=== PATIENT | female | born 1990 | race Two or more races ===

== ENCOUNTER 2020-03-04 11:22 | Emergency (ER) | payer OTHER ==
[~2020-03-04] VITALS: Ht 157.5 cm; Wt 81.6 kg
[2020-03-04 13:37] VITALS: BP 121/63
== END 2020-03-04 13:39 | disposition home or self-care (01) ==
LOC: ER 11:22
DX: U07.1 COVID-19 (principal); J06.9 Acute upper respiratory infection, unspecified
CPT/HCPCS: 36415; 71045; 87426

== ENCOUNTER 2021-08-08 19:33 | Emergency (ER) | payer MEDICAID, OTHER ==
[~2021-08-08] VITALS: Ht 154.9 cm; Wt 77.1 kg
[2021-08-08 21:08] LABS: Basophils # (auto) 0 10 ^3/uL (0-0.2); Basophils % (auto) 0.3 % (0.0-2.0); Eosinophils # (auto) 0.3 10 ^3/uL (0-0.8); Eosinophils % (auto) 3.4 % (0.0-7.0); Hemoglobin 13.2 g/dL (12.2-16.2); Lymphocytes # (auto) 2.4 10 ^3/uL (0.4-5.4); Lymphocytes % (auto) 32.3 % (10.0-50.0); Mean Corpuscular Hemoglobin 31.5 pg (28.0-32.0); Mean Corpuscular Hgb Conc. 34.9 g/dL (32.0-36.0); Mean Corpuscular Volume 90.3 fL (80.0-100.0); Monocytes # (auto) 0.5 10 ^3/uL (0-1.3); Neutrophils # (auto) 4.4 10 ^3/uL (1.6-8.6); Nucleated Red Blood Cells % 0.1 %; Red Blood Cells 4.21 10^6/uL (4.0-5.20); Red Cell Distribution Width 12.9 % (11.8-14.3); White Blood Cell 7.6 10^3/uL (4.4-10.8)
[2021-08-08 21:25] LABS: BUN/Creatinine Ratio 16.7; Calcium 9.1 mg/dL (8.5-10.1); Potassium 3.8 mmol/L (3.5-5.1)
[2021-08-09 01:50] LABS: Urine Bacteria MOD /hpf (None Seen); Urine Blood Negative /uL (Negative); Urine Mucus FEW (None Seen); Urine WBC 5 /hpf (0 - 5)
[2021-08-09] MEDS ORDERED: CEPHALEXIN 250 MG CAP PO ONE (02:45)
[2021-08-09] MEDS ORDERED: CEPH-322 PO (02:47)
[2021-08-09 03:26] VITALS: BP 99/50
== END 2021-08-09 03:59 | disposition home or self-care (01) ==
LOC: ER 19:33
DX: O23.41 Unspecified infection of urinary tract in pregnancy, first trimester (principal); N39.0 Urinary tract infection, site not specified; Z3A.08 8 weeks gestation of pregnancy
CPT/HCPCS: 36415; 76801; 80048; 81001; 82150; 83690; 84702; 85025

== ENCOUNTER 2025-03-01 11:58 | Inpatient (IN) | payer MEDICAID ==
[2025-03-01] VITALS (8 sets, daily range): BP systolic 107–116; BP diastolic 62–77; PULSE 81–92; RESP 14–24; TEMP 97.8–99.1; O2SAT 0–100
[~2025-03-01] VITALS: Ht 154.9 cm; Wt 72.4 kg
[~2025-03-01 11:58] MED LIST: CEPH250C PO
--- NOTE | 2025-03-01 12:19 | ED.PDOC ---
HPI Comments This is a 35 year old female presenting to the ED with chief complaint of chest pain. Patient reports that she has been experiencing pain to to her chest since yesterday, but it had worsened today and is now with associated coughing and radiation of pain to the left side of her head. Patient denies any SOB, dizziness, N/V, vision changes, fever, or chills. Time Seen by MD: 12:17 Primary Care Provider: DENIES Reviewed Notes: Nurses Notes, Medications, Allergies Allergies: Coded Allergies: NO KNOWN ALLERGIES (Unverified , 09/19/10) Home Meds Active Scripts Cephalexin (KEFLEX CAPSULE) 250 Mg Cp, 250 MG PO TID for 5 Days, #15 TAB Prov:CRYSTAL BESS MD 08/09/21 Information Source: Patient, Relative (Child) Mode of Arrival: Ambulatory Severity: Moderate Timing: Days Duration: Since onset Prehospital treatment: None Location: Substernal Radiation: Neck Quality: Aching Onset: At Rest Cardiac Risk Factors: Diabetes PE Risk Factors: None History of: None Past Medical History PAST MEDICAL HISTORY: DM Surgical History: ADAPTIVE PHYSICAL EDUCATOR History: Denies all ADAPTIVE PHYSICAL EDUCATOR Hx, No Pertinent ADAPTIVE PHYSICAL EDUCATOR History Family History Family History: Family hx of DM, Family hx of HTN Social History Smoker: Non-Smoker Alcohol: Denies ETOH Use Drugs: Denies Drug Use Lives In: Home Constitutional: denies: chills, diaphoresis, fatigue, fever, malaise, sweats, weakness, others EENTM: denies: blurred vision, double vision, ear bleeding, ear discharge, ear drainage, ear pain, ear ringing, eye pain, eye redness, hearing loss, mouth pain, mouth swelling, nasal discharge, nose bleeding, nose congestion, nose pain, photophobia, tearing, throat pain, throat swelling, voice changes, others Respiratory: reports: cough; denies: hemoptysis, orthopnea, SOB at rest, shortness of breath, SOB with excertion, stridor, wheezing, others Cardiovascular: reports: chest pain; denies: dizzy spells, diaphoresis, Dyspnea on exertion, edema, irregular heart beat, left arm pain, lightheadedness, palpitations, PND, syncope, others Gastrointestinal: denies: abdomen distended, abdominal pain, blood streaked bowels, constipated, diarrhea, dysphagia, difficulty swallowing, hematemesis, melena, nausea, poor appetite, poor fluid intake, rectal bleeding, rectal pain, vomiting, others Genitourinary: denies: abnormal vagina bleeding, burning, dyspareunia, dysuria, flank pain, frequency, hematuria, incontinence, pain, , vagina discharge, urgency, others Neurological: denies: dizziness, fainting, headache, left sided numbness, left sided weakness, numbness, paresthesia, pre-existing deficit, right sided numbness, right sided weakness, seizure, speech problems, tingling, tremors, weakness, others Musculoskeletal: denies: back pain, gout, joint pain, joint swelling, muscle pain, muscle stiffness, neck pain, others Integumetry: denies: bruises, change in color, change in hair/nails, dryness, laceration, lesions, lumps, rash, wounds, others Allergic/Immunocompromised: denies: Difficulty Healing, Frequent Infections, Hives, Itching, others Hematologic/Lymphatic: denies: anemia, blood clots, easy bleeding, easy bruising, swollen glands, others Endocrine: denies: excessive hunger, excessive sweating, excessive thirst, excessive urination, flushing, intolerance to cold, intolerance to heat, un explained weight gain, unexplained weight loss, others Psychiatric: denies: anxiety, bipolar disorder, depression, hopeless, panic disorder, schizophrenia, sleepless, suicidal, others All Other Systems: Reviewed and Negative Physical Exam General Appearance: Moderate Distress HEENT: Normal ENT Inspection, Pharynx Normal, TMs Normal Neck: Full Range of Motion, Non-Tender, Normal, Normal Inspection Respiratory: Chest Non-Tender, Decreased Breath Sounds, Respiratory Distress Cardiovascular: No Edema, No JVD, No Murmur, No Gallop, Tachycardia Breast Exam: Deferred Gastrointestinal: No Organomegaly, Non Tender, No Pulsatile Mass, Normal Bowel Sounds, Soft Genitalia: Deferred Pelvic: Deferred Rectal: Deferred Extremities: No calf tenderness, Normal capillary refill, Normal inspection, Normal range of motion, Non-tender, No pedal edema Musculoskeletal : Apperance: Normal Neurologic: Alert, edger automatic II-XII nml as Tested, No Motor Deficits, Normal Affect, Normal Mood, No Sensory Deficits Cerebellar Function: Normal Reflexes: Normal Skin: Dry, Normal Color, Warm Lymphatic: No Adenopathy EKG EKG : Pulse Rate (adult): 106 [place]: Normal Cardiac Rhythm: ST Block: None Hypertrophy: LAE ST: Normal Was a procedure done? Was a procedure done?: No CP Differential Dx Differential Diagnosis: Angina, VA, Pulmonary Embolus, Other (COPD, pneumonia) Differential Diagnosis: CHF Differential Diagnosis: Pericarditis X-Ray, Labs, Meds, VS Vital Signs Date Time Temp Pulse Resp B/P (MAP) Pulse Ox O2 Delivery O2 Flow Rate FiO2 03/01/25 13:35 102.5 03/01/25 13:14 122 18 98 Room Air 03/01/25 13:14 102.5 122 18 124/86 (99) 98 102.5 03/01/25 12:19 106 03/01/25 12:16 98.6 111 18 137/91 100 98.6 03/01/25 12:08 106 Lab Test 03/01/25 13:30 03/01/25 13:15 03/01/25 12:49 03/01/25 12:47 Range/Units Troponin I High Sensitivity < 3 L </=34 ng/L Lactic Acid Level 2.1 *H 0.4-2.0 mmol/L Influenza Type A Antigen Negative Negative Influenza Type B Antigen Negative Negative SARS-CoV-2 Antigen (Rapid) Positive NEGATIVE Urine Color Light-yellow Yellow Urine Clarity Clear Clear Urine pH 5.5 5.0-9.0 Urine Specific [place] 1.015 1.001-1.035 Urine Protein Negative Negative Urine Ketones Trace Negative Urine Blood Negative Negative /uL Urine Nitrite Negative Negative Urine Bilirubin Negative Negative Urine Urobilinogen Normal Negative mg/dL Urine Leukocyte Esterase Negative Negative /uL Urine RBC 1 0 - 4 /hpf Urine Microscopic WBC 1 0-5 /HPF Urine Squamous Epithelial Cells Few <5 /hpf Urine Bacteria None seen None Seen /hpf Urine Glucose 4+ H Normal mg/dL Urine Test Negative Negative Test 03/01/25 12:43 Range/Units White Blood Count 6.3 4.4-10.8 10^3/uL Red Blood Count 5.04 4.0-5.20 10^6/uL Hemoglobin 11.7 L 12.2-16.2 g/dL Hematocrit 36.6 36.0-46.0 % Mean Corpuscular Volume 72.5 L 80.0-100.0 fL Mean Corpuscular Hemoglobin 23.2 L 28.0-32.0 pg Mean Corpuscular Hemoglobin Concent 31.9 L 32.0-36.0 g/dL Red Cell Distribution Width 17.8 H 11.8-14.3 % Platelet Count 141 140-450 10^3/uL Mean Platelet Volume 11.4 H 6.9-10.8 fL Neutrophils (%) (Auto) 74.5 37.0-80.0 % Lymphocytes (%) (Auto) 18.3 10.0-50.0 % Monocytes (%) (Auto) 5.3 0.0-12.0 % Eosinophils (%) (Auto) 1.2 0.0-7.0 % Basophils (%) (Auto) 0.7 0.0-2.0 % Neutrophils # (Auto) 4.7 1.6-8.6 10 ^3/uL Lymphocytes # (Auto) 1.2 0.4-5.4 10 ^3/uL Monocytes # (Auto) 0.3 0-1.3 10 ^3/uL Eosinophils # (Auto) 0.1 0-0.8 10 ^3/uL Basophils # (Auto) 0 0-0.2 10 ^3/uL Nucleated Red Blood Cells 0.0 % D-Dimer, Quantitative 0.22 0.0-0.49 mg/L FEU Sodium Level 132 L 136-145 mmol/L Potassium Level 4.6 3.5-5.1 mmol/L Chloride Level 98 98-107 mmol/L Carbon Dioxide Level 23 20-31 mmol/L Anion Gap 11 5-15 Blood Urea Nitrogen 12 9-23 mg/dL Creatinine 0.67 0.550-1.02 mg/dL Glomerular Filtration Rate Calc 116 >90 mL/min BUN/Creatinine Ratio 17.9 10.0-20.0 Serum Glucose 272 H 74-106 mg/dL Calcium Level 9.1 8.7-10.4 mg/dL Troponin I High Sensitivity < 3 L </=34 ng/L B-Type Natriuretic Peptide 11.52 0-100 pg/mL Current Medications Medications (Trade) Dose Ordered Sig/Con Route Start Time Stop Time Status Last Admin Acetaminophen (Tylenol Tablet) 650 mg ONCE ONCE PO 03/01/25 13:15 03/01/25 13:16 DC 03/01/25 13:35 Sodium Chloride 1,450 ml @ 1,450 mls/hr ONCE ONCE IV 03/01/25 13:30 03/01/25 14:29 DC 03/01/25 13:30 Vancomycin HCl 250 ml @ 250 mls/hr ONCE ONCE IV 03/01/25 13:30 03/01/25 14:29 DC 03/01/25 14:14 Ceftriaxone Sodium 50 ml @ 100 mls/hr ONCE ONCE IV 03/01/25 13:30 03/01/25 13:59 DC 03/01/25 13:40 IV Hep-Lock was established. The COVID test is positive. The patient was given acetaminophen 650 mg for the fever. The patient was given normal saline as a bolus per sepsis protocol. The troponin level is negative The patient's CBC is within normal limits. The chemistry panel is within normal limits After blood cultures x2 were drawn, the patient was given vancomycin The patient was also given Rocephin The urine test is negative for any infection At this time, the patient is being admitted to the hospitalist Images Reviewed?: Images reviewed and evaluated by me Time of 1ST Reevaluation: 14:45 Reevaluation 1ST: Unchanged Patient Education/Counseling: Diagnosis, Treatment, Prognosis Family Education/Counseling: Diagnosis, Treatment, Prognosis SEPSIS Sepsis Screen Physician Orders Electrocardigram (03/01/25 12:13) Heplock Iv (03/01/25 12:14) Pulse Oximetry (03/01/25 12:14) Staff Consultant (03/01/25 12:14) Blood Pressure (03/01/25 12:14) Chest Two Views Routine (03/01/25 12:14) Troponin-I Hs (03/01/25 15:14) Blood Culture (03/01/25 13:13) Vital Signs Date Time Temp Pulse Resp B/P (MAP) Pulse Ox O2 Delivery O2 Flow Rate FiO2 03/01/25 13:35 102.5 03/01/25 13:14 122 18 98 Room Air 03/01/25 13:14 102.5 122 18 124/86 (99) 98 102.5 03/01/25 12:19 106 03/01/25 12:16 98.6 111 18 137/91 100 98.6 03/01/25 12:08 106 Laboratory Tests Test 03/01/25 12:43 03/01/25 13:15 White Blood Count 6.3 10^3/uL (4.4-10.8) Lactic Acid Level 2.1 mmol/L (0.4-2.0) *H Medications Medications Dose Ordered Sig/Con Route Start Time Stop Time Status Last Admin Dose Admin Acetaminophen 650 mg ONCE ONCE PO 03/01/25 13:15 03/01/25 13:16 DC 03/01/25 13:35 Ceftriaxone Sodium 50 ml @ 100 mls/hr ONCE ONCE IV 03/01/25 13:30 03/01/25 13:59 DC 03/01/25 13:40 Sodium Chloride 1,450 ml @ 1,450 mls/hr ONCE ONCE IV 03/01/25 13:30 03/01/25 14:29 DC 03/01/25 13:30 Vancomycin HCl 250 ml @ 250 mls/hr ONCE ONCE IV 03/01/25 13:30 03/01/25 14:29 DC 03/01/25 14:14 Departure 1 Departure Time of Disposition: 14:44 Impression: Primary Impression: COVID-19 virus infection Additional Impressions: Acute respiratory failure Qualified Codes: J96.01 - Acute respiratory failure with hypoxia Sepsis Qualified Codes: A41.9 - Sepsis, unspecified organism Disposition: 09 ADMITTED INPATIENT Admit to: Tele Condition: Fair Critical Care Note Critical Care Time?: Yes (45 min-critical care time only) Stability Stability form required: Yes Unstable for transfer: Telemetry monitoring (Telemetry monitoring required), ED Physician Assesment (Clinical assesment) Heart Score Heart Score: Heart Score Response (Comments) Value History Highly Suspicious 2 EKG Normal 0 Age <45 0 Risk Factors No known risk factors 0 Troponin Normal limit 0 Total 2 I personally scribed for SLY SAGASUTME MD ([email or web address]) on 03/01/25 at 12:19. Electronically submitted by Ger Pacheco ([email or web address]). SLY SAGASTUME MD Mar 01, 2025 12:19
[2025-03-01 13:02] LABS: Nucleated Red Blood Cells % 0.0 %
[2025-03-01 13:04] LABS: Hematocrit 36.6 % (36.0-46.0); Hemoglobin 11.7 g/dL (12.2-16.2); Mean Corpuscular Hemoglobin 23.2 pg (28.0-32.0); Mean Corpuscular Volume 72.5 fL (80.0-100.0)
[2025-03-01 13:12] LABS: Chloride 98 mmol/L (98-107); Potassium 4.6 mmol/L (3.5-5.1)
[2025-03-01 13:13] LABS: Anion Gap 11 (5-15); Calcium 9.1 mg/dL (8.7-10.4); Carbon Dioxide 23 mmol/L (20-31); Sodium 132 mmol/L (136-145)
[2025-03-01 13:18] LABS: BUN/Creatinine Ratio 17.9 (10.0-20.0); Blood Urea Nitrogen 12 mg/dL (9-23); Glucose 272 mg/dL (74-106)
[2025-03-01 13:29] LABS: Urine Protein, UAD Negative (Negative)
[2025-03-01] MEDS: SODIUM CHLORIDE 0.9% 1,450 ML IV ONE (13:30)
[2025-03-01] MEDS: ACETAMINOPHEN 325 MG TAB PO ONE (13:35)
[2025-03-01 13:40] LABS: COVID19 ANTIGEN SOFIA FIA POSITIVE (NEGATIVE)
[2025-03-01 14:02] LABS: Lactic Acid w/Reflex 2.1 mmol/L (0.4-2.0)
[2025-03-01] MEDS: VANCOMYCIN 1GM/250ML KIT 250 ML IV ONE (14:14)
--- NOTE | 2025-03-01 14:31 | DVH ---
XY CHEST TWO VIEWS ROUTINE CLINICAL HISTORY: sob COMPARISON: None TECHNIQUE: Frontal and lateral view of the chest was obtained FINDINGS: Lines and Tubes: None Lungs: No focal consolidation. Pleura: No effusion. No pneumothorax. Cardiomediastinal contours: Unremarkable Bones: No acute osseous abnormality. IMPRESSION: 1. No acute cardiopulmonary disease.
[2025-03-01] MEDS: diphenhydrAMINE HCL 50 MG/1 ML VL IV ONE (15:17)
[2025-03-01] MEDS ORDERED: DEXTROSE (50%) 50ML SYRG IV PRN ×3 (16:00→17:00)
[2025-03-01] MEDS ORDERED: ALBUTEROL SULF 2.5 MG/0.5ML(0.5%) NEB SOLN NEB PRN (16:00)
[2025-03-01] MEDS: SODIUM CHLORIDE 0.9% 1,000 ML IV SCH (16:13)
--- NOTE | 2025-03-01 16:50 | DVHHP2 ---
History of Present Illness Reason for Visit: Shortness of breath due to COVID positive History of Present Illness This is a 37-year-old female with history of type 2 DM who presents to ED with chief complaint of shortness of breaths associated with coughing that started yesterday. The patient denies recent sick contact with family and friends. She is concerned about her symptoms and would like to be further evaluated and treated. Upon evaluation, patient is positive for COVID-19 negative for influenza a and B. the patient has been started on IV antibiotics and we will continue this during her stay. The patient will be admitted under hospitalist care to the medical-surgical unit. The patient denies fever, chills, headache, dizziness, chest pain, abdominal pain, nausea, vomiting, diarrhea, constipation and other associated symptoms. The plan has been discussed with the patient and primary RN in which all questions concerns have been addressed. Endocrine: Diabetes Family History: DM, Hypertension Smoke: No ALCOHOL: none Drugs: None Lives: with Family Domestic Violence: Neg Review of Systems Respiratory: Cough, Shortness of breath Allergies: Coded Allergies: NO KNOWN ALLERGIES (Unverified , 09/19/10) Medications Current Medications Medications Dose Ordered Sig/Con Route Start Time Stop Time Status Last Admin Dose Admin Ceftriaxone Sodium 50 ml @ 100 mls/hr DAILY@09 IV 03/02/25 09:00 Albuterol 2.5 mg Q2HPRN PRN NEB 03/01/25 16:00 Sodium Chloride 1,000 ml @ 60 mls/hr [id number] IV 03/01/25 16:00 03/01/25 16:13 60 MLS/HR Enoxaparin Sodium 40 mg DAILY SC 03/02/25 10:00 Acetaminophen 650 mg Q6HP PRN PO 03/01/25 16:00 Diagnostic Test (Pha) 1 strip ACHS 03/01/25 17:00 Insulin Human Regular ACHS SC 03/01/25 17:00 Dextrose 50 ml UD PRN IV 03/01/25 16:00 Exam Vital Signs Vital Signs Date Time Temp Pulse Resp B/P (MAP) Pulse Ox O2 Delivery O2 Flow Rate FiO2 03/01/25 16:32 99.1 92 16 116/77 100 99.1 03/01/25 16:25 Room Air* 0 21 General Appearance: Alert, Oriented X3, Cooperative HEENT: Atraumatic, PERRLA, Mucous membr. moist/pink Respiratory: Other (Diminished bilateral lower lung baker) Cardiovascular: Normal S1, Normal S2, No murmurs Abdominal: Normal bowel sounds, Soft, No tenderness, No hepatospenomegaly, No masses Extremities: No clubbing, No cyanosis, No edema, Normal pulses, No tenderness/swelling Skin: No rashes, No breakdown Neuro: Normal gait, Normal speech, Strength at 5/5 X4 ext, Normal tone, Sensation intact, Cranial nerves 3-12 NL Psych/Mental Status: Mental status NL, Mood NL Labs/Xrays Labs Test 03/01/25 15:30 03/01/25 12:49 03/01/25 12:47 03/01/25 12:43 Range/Units Lactic Acid Level 1.4 0.4-2.0 mmol/L Troponin I High Sensitivity < 3 L </=34 ng/L Influenza Type A Antigen Negative Negative Influenza Type B Antigen Negative Negative SARS-CoV-2 Antigen (Rapid) Positive NEGATIVE Urine Color Light-yellow Yellow Urine Clarity Clear Clear Urine pH 5.5 5.0-9.0 Urine Specific [place] 1.015 1.001-1.035 Urine Protein Negative Negative Urine Ketones Trace Negative Urine Blood Negative Negative /uL Urine Nitrite Negative Negative Urine Bilirubin Negative Negative Urine Urobilinogen Normal Negative mg/dL Urine Leukocyte Esterase Negative Negative /uL Urine RBC 1 0 - 4 /hpf Urine Microscopic WBC 1 0-5 /HPF Urine Squamous Epithelial Cells Few <5 /hpf Urine Bacteria None seen None Seen /hpf Urine Glucose 4+ H Normal mg/dL Urine Test Negative Negative White Blood Count 6.3 4.4-10.8 10^3/uL Red Blood Count 5.04 4.0-5.20 10^6/uL Hemoglobin 11.7 L 12.2-16.2 g/dL Hematocrit 36.6 36.0-46.0 % Mean Corpuscular Volume 72.5 L 80.0-100.0 fL Mean Corpuscular Hemoglobin 23.2 L 28.0-32.0 pg Mean Corpuscular Hemoglobin Concent 31.9 L 32.0-36.0 g/dL Red Cell Distribution Width 17.8 H 11.8-14.3 % Platelet Count 141 140-450 10^3/uL Mean Platelet Volume 11.4 H 6.9-10.8 fL Neutrophils (%) (Auto) 74.5 37.0-80.0 % Lymphocytes (%) (Auto) 18.3 10.0-50.0 % Monocytes (%) (Auto) 5.3 0.0-12.0 % Eosinophils (%) (Auto) 1.2 0.0-7.0 % Basophils (%) (Auto) 0.7 0.0-2.0 % Neutrophils # (Auto) 4.7 1.6-8.6 10 ^3/uL Lymphocytes # (Auto) 1.2 0.4-5.4 10 ^3/uL Monocytes # (Auto) 0.3 0-1.3 10 ^3/uL Eosinophils # (Auto) 0.1 0-0.8 10 ^3/uL Basophils # (Auto) 0 0-0.2 10 ^3/uL Nucleated Red Blood Cells 0.0 % D-Dimer, Quantitative 0.22 0.0-0.49 mg/L FEU Sodium Level 132 L 136-145 mmol/L Potassium Level 4.6 3.5-5.1 mmol/L Chloride Level 98 98-107 mmol/L Carbon Dioxide Level 23 20-31 mmol/L Anion Gap 11 5-15 Blood Urea Nitrogen 12 9-23 mg/dL Creatinine 0.67 0.550-1.02 mg/dL Glomerular Filtration Rate Calc 116 >90 mL/min BUN/Creatinine Ratio 17.9 10.0-20.0 Serum Glucose 272 H 74-106 mg/dL Calcium Level 9.1 8.7-10.4 mg/dL B-Type Natriuretic Peptide 11.52 0-100 pg/mL SEPSIS Sepsis Screen Date sepsis recognized/suspect: Mar 01, 2025 Time Sepsis recognized/suspect: 1606 Recent Procedure: No On Antibiotic Therapy: No Respiratory Rate >20: No Heart Rate >90: No Temp<36 C (96.8 F) or >38.3 C: No SBP <90 or MAP <65 mmHG: No New Acute Mental Status Change: No Is the patient on CPAP, BIPAP,: No Physician Orders Electrocardigram (03/01/25 12:13) Heplock Iv (03/01/25 12:14) Pulse Oximetry (03/01/25 12:14) Staple Processing Machine Operator (03/01/25 12:14) Blood Pressure (03/01/25 12:14) Chest Two Views Routine (03/01/25 12:14) Blood Culture (03/01/25 13:13) Ceftriaxone 1gm/50ml (Rocephin) (03/02/25 09:00) Albuterol Medneb (Ventolin Medneb) (03/01/25 16:00) Admit (03/01/25 15:56) 2 Gm Sodium Diet (03/01/25 Dinner) Sodium Chloride 0.9% (03/01/25 16:00) Enoxaparin Sodium (Lovenox) (03/02/25 10:00) Complete Blood Count (03/02/25 04:00) Comprehensive Metabolic Panel (03/02/25 04:00) Condition: Fair (03/01/25 15:56) Acetaminophen Tablet (Tylenol Tablet) (03/01/25 16:00) Bedrest With Bathroom Privileg (03/01/25 15:56) Glucose Blood (Accu-Chek Comfort Curve T (03/01/25 17:00) Insulin R (Human) (Insulin R) (03/01/25 17:00) Dextrose 50% Syringe (03/01/25 16:00) Vital Signs Date Time Temp Pulse Resp B/P (MAP) Pulse Ox O2 Delivery O2 Flow Rate FiO2 03/01/25 16:32 99.1 92 16 116/77 100 99.1 03/01/25 16:25 100 Room Air* 0 21 03/01/25 16:25 100 Room Air 03/01/25 16:06 90 14 99 Room Air* 0 21 03/01/25 16:06 99.1 90 14 116/77 (90) 99 99.1 03/01/25 16:06 99.1 90 14 116/77 (90) 99 99.1 03/01/25 14:43 98.7 03/01/25 13:35 102.5 03/01/25 13:14 122 18 98 Room Air 03/01/25 13:14 102.5 122 18 124/86 (99) 98 102.5 03/01/25 12:19 106 03/01/25 12:16 98.6 111 18 137/91 100 98.6 03/01/25 12:08 106 Laboratory Tests Test 03/01/25 12:43 03/01/25 13:15 03/01/25 15:30 White Blood Count 6.3 10^3/uL (4.4-10.8) Lactic Acid Level 2.1 mmol/L (0.4-2.0) *H 1.4 mmol/L (0.4-2.0) Medications Medications Dose Ordered Sig/Con Route Start Time Stop Time Status Last Admin Dose Admin Acetaminophen 650 mg ONCE ONCE PO 03/01/25 13:15 03/01/25 13:16 DC 03/01/25 13:35 650 MG Ceftriaxone Sodium 50 ml @ 100 mls/hr ONCE ONCE IV 03/01/25 13:30 03/01/25 13:59 DC 03/01/25 13:40 100 MLS/HR Diphenhydramine HCl 25 mg ONCE ONCE IV 03/01/25 15:15 03/01/25 15:16 DC 03/01/25 15:17 25 MG Sodium Chloride 1,000 ml @ 60 mls/hr [id number] IV 03/01/25 16:00 03/01/25 16:13 60 MLS/HR Sodium Chloride 1,450 ml @ 1,450 mls/hr ONCE ONCE IV 03/01/25 13:30 03/01/25 14:29 DC 03/01/25 13:30 1,450 MLS/HR Vancomycin HCl 250 ml @ 250 mls/hr ONCE ONCE IV 03/01/25 13:30 03/01/25 14:29 DC 03/01/25 14:14 250 MLS/HR Assessment/Plan Assessment/Plan Shortness of breadth due to COVID positive-patient with chief complaint of shortness of breath associated with coughing that started yesterday Denies sick contact with family and friends COVID positive, influenza a and B are negative The patient received IV antibiotic ceftriaxone and vancomycin in which reaction to vancomycin observe by primary RN so Benadryl was given Admit to medical-surgical unit Reviewed CBC which is normal Reviewed BMP show elevated blood glucose 272 and sodium 132 Cardiac enzyme negative x2 Lactic acid elevated 2.1 is negative D-dimer is negative Urinalysis is negative Reviewed chest x-ray which is negative Albuterol q.2h p.r.n. shortness of breath IV antibiotic ceftriaxone and azithromycin initiated IV hydration Repeat lactic acid in a.m. Hyponatremia sodium 132 IV hydration Continue to monitor labs Type 2 DM uncontrolled Regular insulin mild SS a.c. and HS Accu-Cheks per protocol One thousand eight hundred ADA diet Reconcile home medication DVT prophylaxis not indicated patient ambulatory PUD prophylaxis not indicated no history of GERD Labs in a.m. Discussed plan of care with the patient in which all questions concerns have been addressed Plan discussed with: Patient My Orders Orders - TAMIKA RAMOS Procedure Category Date Status Time Ceftriaxone 1gm/50ml PHA 03/02/25 In Process (Rocephin) 09:00 Albuterol Medneb PHA 03/01/25 In Process (Ventolin Medneb) 16:00 Admit ADMIT 03/01/25 Transmitted 15:56 2 Gm Sodium Diet DIET 03/01/25 Transmitted Dinner Sodium Chloride 0.9% PHA 03/01/25 In Process 16:00 Enoxaparin Sodium PHA 03/02/25 In Process (Lovenox) 10:00 Complete Blood Count LAB 03/02/25 Verified 04:00 Comprehensive LAB 03/02/25 Verified Metabolic Panel 04:00 Condition: Fair HERMAN 03/01/25 In Process 15:56 Acetaminophen Tablet PHA 03/01/25 In Process (Tylenol Tablet) 16:00 Bedrest With Bathroom HERMAN 03/01/25 In Process Privileg 15:56 Glucose Blood PHA 03/01/25 In Process (Accu-Chek Comfort 17:00 Insulin R (Human) PHA 03/01/25 In Process (Insulin R) 17:00 Dextrose 50% Syringe PHA 03/01/25 In Process 16:00 Date of Service: Mar 01, 2025 Billing Provider: TAMIKA RAMOS Common Visit Codes: [id number] INP/OBS CARE (HIGH) TAMIKA RAMOS Mar 01, 2025 16:50
[2025-03-01] MEDS: AZITHROMYCIN 500MG/ 250ML 250 ML IV ONE (16:58)
[2025-03-01] MEDS ORDERED: InsuLIN REG 1unit/0.01ml Soln (100units/ml) SC SCH ×2 (17:00→20:00)
[2025-03-01] MEDS ORDERED: ACCU-CHEK COMFORT CURVE STRIP VI SCH ×2 (17:00→20:00)
[2025-03-01] MEDS: SODIUM CHLORIDE 0.9% 1,000 ML IV ONE (17:02)
[2025-03-01] MEDS: ACCU-CHEK COMFORT CURVE STRIP VI SCH (17:08)
[2025-03-01] MEDS: InsuLIN REG 1unit/0.01ml Soln (100units/ml) SC SCH (17:11)
[2025-03-02] VITALS (8 sets, daily range): BP systolic 100–116; BP diastolic 57–71; PULSE 81–92; RESP 16–18; TEMP 97.9–99.9; O2SAT 0–99
[2025-03-02 07:30] LABS: Hematocrit 34.3 % (36.0-46.0); Hemoglobin 11.0 g/dL (12.2-16.2); Mean Corpuscular Hemoglobin 23.5 pg (28.0-32.0); Mean Corpuscular Volume 73.0 fL (80.0-100.0); Nucleated Red Blood Cells % 0.1 %
[2025-03-02 07:47] LABS: Albumin 3.6 g/dL (3.2-4.8); Alkaline Phosphatase 101 U/L (46-116); Anion Gap 9 (5-15); BUN/Creatinine Ratio 18.6 (10.0-20.0); Blood Urea Nitrogen 11 mg/dL (9-23); Carbon Dioxide 23 mmol/L (20-31); Chloride 104 mmol/L (98-107); Potassium 4.0 mmol/L (3.5-5.1); Sodium 136 mmol/L (136-145); Total Protein 6.8 g/dL (5.7-8.2)
[2025-03-02 07:48] LABS: Alanine Aminotransferase 117 U/L (7-40); Bilirubin, Total 0.4 mg/dL (0.2-1.0); Calcium 8.4 mg/dL (8.7-10.4); Glucose 218 mg/dL (74-106)
[2025-03-02] MEDS: AZITHROMYCIN 500MG/ 250ML 250 ML IV SCH (10:33)
[2025-03-02] MEDS: ZINC SULFATE 220mg CAP or TAB PO SCH (10:33)
[2025-03-02] MEDS: ENOXAPARIN SOD 40 MG/0.4 ML SYRINGE SC SCH (10:34)
[2025-03-02] MEDS: INSULIN LANTUS (GLARGINE) 1 /0.01ml (100units/ml) SC SCH (14:00)
--- NOTE | 2025-03-02 14:16 | ECG ---
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
[2025-03-02] MEDS: ERGOCALCIFEROL 50,000 UNIT(1.25MG) CAP PO ONE (14:32)
--- NOTE | 2025-03-02 16:29 | DVHPNRES ---
Progress Note Date Seen: Mar 02, 2025 Resident Creating Document: GINA SPAIN RESIDENT Medical Necessity Reason Pt with a Central, PICC or Fol: No Subjective Review of Systems This 37-year-old female, Malaysian-speaking with past medical history of type 2 diabetes mellitus, dyslipidemia came in with complaints of shortness of breath, cough and chest pain since 2 days. She rated the chest pain 7 on 10 in intensity, dull, radiating to left neck with no aggravating or alleviating factors. She states that the cough is dry and shortness of breadth increases when she walks. The patient denies fever, chills, headache, dizziness, abdominal pain, nausea, vomiting, diarrhea, constipation and other associated symptoms. Upon evaluation, patient is positive for COVID-19 and negative for influenza a and B. PMHx: type 2 diabetes mellitus, dyslipidemia Surgical history: Family history: non Relevant Social history: Denies smoking alcohol or illicit drug use Home medication: Metformin Allergic history: No known allergies PCP: [facility] General: patient denies fever, fatigue, weaknes, sweating, any recent changes in appetite and weight HEENT: No headaches, visiual changes, hearing loss, tinnitus, nasal congestion and discharge, and sore throat. Cardiovascular: Denies chest pain, palpitations, dyspnea on exertion, orthopnea, or claudication. Respiratory: Complains of cough and shortness of breaths Gastrointestinal: Denies nausea, vomiting, dysphagia, odynophagia, heartburn, abdominal pain, flatulence, bloating, diarrhea, constipation, change in stool, or blood in stool. Genitourinary: No dysuria, hematuria, discharge, frequency, urgency, nocturia, incontinence, and urinary retention. Endocrine: No heat or cold intolerance, polydipsia, polyuria, and polyphagia. Neurological: No dizziness, extremity weakness and numbness, tremors, gait disturbance, seizures, and memory impairment. Psychiatric: Denies depression, anxiety,or insomnia. Musculoskeletal: Denies neck pain, stiffness and swelling, back pain, muscle weakness, joint pain, stiffness, swelling, or limited range of motion. Skin: No rashes, itching, skin lesion, changes in hair, nail, skin texture and breast. Hematologic/Lymphatic: Denies easy bruising, bleeding tendencies, or lymph node enlargement. Objective vital signs Vital Sign Date Time Temp Pulse Resp B/P (MAP) Pulse Ox O2 Delivery O2 Flow Rate FiO2 03/02/25 13:00 98.8 88 18 107/71 (83) 98 98.8 03/02/25 08:00 Room Air* 0 21 Total Intake and Output 03/01/25 03/01/25 03/02/25 15:00 23:00 07:00 Intake Total 50 ml 1696 ml 1120 ml Balance 50 ml 1696 ml 1120 ml medications Current Medications Medications Dose Ordered Sig/Con Route Start Time Stop Time Status Last Admin Dose Admin Albuterol 2.5 mg Q2HPRN PRN NEB 03/01/25 16:00 Enoxaparin Sodium 40 mg DAILY SC 03/02/25 10:00 03/02/25 10:34 40 MG Acetaminophen 650 mg Q6HP PRN PO 03/01/25 16:00 Dextrose 50 ml UD PRN IV 03/01/25 16:00 Cancel Azithromycin 250 ml @ 125 mls/hr DAILY IV 03/02/25 10:00 03/02/25 10:33 125 MLS/HR Diagnostic Test (Pha) 1 strip ACHS 03/01/25 17:00 03/02/25 11:02 1 STRIP Insulin Human Regular ACHS SC 03/01/25 17:00 03/02/25 10:58 8 UNITS Dextrose 50 ml UD PRN IV 03/01/25 17:00 Zinc Sulfate 220 mg DAILY PO 03/02/25 10:00 03/02/25 10:33 220 MG Insulin Glargine 10 units HS SC 03/02/25 14:00 03/02/25 14:00 10 UNITS Examination General Appearance: Alert, Oriented X3, Cooperative, No acute distress HEENT: Atraumatic, PERRLA, EOMI, Mucous membrane moist/pink Respiratory: Clear to auscultation, Normal air movement Cardiovascular: Regular rate, Normal S1, Normal S2, No murmurs, no chest wall tenderness Abdominal: Normal bowel sounds, Soft, No tenderness, No hepatospenomegaly, No masses Extremities: No clubbing, No cyanosis, No edema, Normal pulses, No tenderness/swelling Skin: No rashes, No breakdown, No significant lesion Neuro: Normal gait, Normal speech, Strength at 5/5 X4 ext, Normal tone, Sensation intact, Cranial nerves 3-12 NL, Reflexes 2+ Psych/Mental Status: Mental status NL, Mood NL laboratory and microbiology Laboratory Tests 03/02/25 04:58 Test 03/02/25 04:58 Range/Units Serum Glucose 218 H 74-106 mg/dL Microbiology Date/Time Source Procedure Growth Status 03/01/25 13:30 Blood Blood Culture - Preliminary NO GROWTH AFTER 24 HOURS OF INCUBATION. Resulted Problem List/Assessment/Plan Problem List/Assessment/Plan Assessment/Plan Acute respiratory failure due to COVID Ruled out influenza A and B Azithromycin Lactic acid elevated 2.1 Albuterol q.2h p.r.n. shortness of breath IV hydration Hyponatremia IV fluids Follow sodium levels Type 2 DM uncontrolled Insulin Lantus Regular insulin mild SS a.c. and HS Accu-Cheks per protocol Diabetic diet Dyslipidemia Follow lipid profile Not on home medication Outpatient follow-up with PCP on discharge DIET: Diabetic diet GI PROPHYLAXIS:: Protonix CODE STATUS: Goal of care discussed for more than 13 minutes, full code DISPOSITION: Med/surge RECONCILED HOME MEDS: Metformin held. Started on Lantus and sliding scale insulin PCP: [facility] in [facility] Patient's status and plan discussed with the patient. Case discussed with Dr. Yoon Plan discussed with: Patient My Orders My Orders Orders - GINA SPAIN RESIDENT Procedure Category Date Status Time Respiratory Culture JANUSZ 03/02/25 Uncollected W/ Gs 07:07 Complete Blood Count LAB 03/03/25 Verified 04:00 Comprehensive LAB 03/03/25 Verified Metabolic Panel 04:00 Insulin Lantus PHA 03/02/25 In Process (Glargine) (Lantus) 14:00 Date of Service: Mar 02, 2025 Billing Provider: CALEB YOON MD Common Visit Codes: [id number] INP/OBS CARE(HIGH) GINA SPAIN RESIDENT Mar 02, 2025 16:29 CALEB YOON MD Mar 02, 2025 21:17
[2025-03-02] MEDS: ACETAMINOPHEN 325 MG TAB PO PRN (17:41)
[2025-03-03] VITALS (10 sets, daily range): BP systolic 98–116; BP diastolic 60–76; PULSE 81–102; RESP 17–18; TEMP 98.3–100.2; O2SAT 94–99
[2025-03-03 07:18] LABS: Hematocrit 35.8 % (36.0-46.0); Hemoglobin 11.5 g/dL (12.2-16.2); Mean Corpuscular Hemoglobin 23.3 pg (28.0-32.0); Mean Corpuscular Volume 72.7 fL (80.0-100.0); Nucleated Red Blood Cells % 0.1 %
[2025-03-03 07:41] LABS: Alkaline Phosphatase 110 U/L (46-116); Anion Gap 11 (5-15); BUN/Creatinine Ratio 18.2 (10.0-20.0); Blood Urea Nitrogen 12 mg/dL (9-23); Calcium 8.8 mg/dL (8.7-10.4); Carbon Dioxide 24 mmol/L (20-31); Chloride 100 mmol/L (98-107); Potassium 4.5 mmol/L (3.5-5.1); Total Protein 7.2 g/dL (5.7-8.2)
[2025-03-03 07:42] LABS: Alanine Aminotransferase 121 U/L (7-40); Albumin 3.9 g/dL (3.2-4.8); Bilirubin, Total 0.5 mg/dL (0.2-1.0); Glucose 238 mg/dL (74-106); Sodium 135 mmol/L (136-145)
[2025-03-03] MEDS ORDERED: DEXTROSE (50%) 50ML SYRG IV PRN ×2 (09:00→11:45)
[2025-03-03] MEDS: ACCU-CHEK COMFORT CURVE STRIP VI SCH ×2 (10:56→12:11)
[2025-03-03] MEDS ORDERED: InsuLIN REG 1unit/0.01ml Soln (100units/ml) SC SCH ×2 (11:30→22:00)
[2025-03-03] MEDS: INSULIN LANTUS (GLARGINE) 1 /0.01ml (100units/ml) SC SCH (12:10)
[2025-03-03] MEDS: InsuLIN REG 1unit/0.01ml Soln (100units/ml) SC SCH (12:11)
--- NOTE | 2025-03-03 14:16 | DVHPNRES ---
Progress Note Date Seen: Mar 03, 2025 Resident Creating Document: GINA SPAIN RESIDENT Medical Necessity Reason Pt with a Central, PICC or Fol: No Subjective Review of Systems Patient seen at bedside. No new complaints. Patient reports that her shortness of breath, cough has improved. This is a 37-year-old female, Urdu-speaking with past medical history of type 2 diabetes mellitus, dyslipidemia came in with complaints of shortness of breath, cough and chest pain since 2 days. She rated the chest pain 7 on 10 in intensity, dull, radiating to left neck with no aggravating or alleviating factors. She states that the cough is dry and shortness of breadth increases when she walks. The patient denies fever, chills, headache, dizziness, abdominal pain, nausea, vomiting, diarrhea, constipation and other associated symptoms. Upon evaluation, patient is positive for COVID-19 and negative for influenza a and B. PMHx: type 2 diabetes mellitus, dyslipidemia Surgical history: Family history: non Relevant Social history: Denies smoking alcohol or illicit drug use Home medication: Metformin Allergic history: No known allergies PCP: [facility] General: patient denies fever, fatigue, weaknes, sweating, any recent changes in appetite and weight HEENT: No headaches, visiual changes, hearing loss, tinnitus, nasal congestion and discharge, and sore throat. Cardiovascular: Denies chest pain, palpitations, dyspnea on exertion, orthopnea, or claudication. Respiratory: Complains of cough and shortness of breaths Gastrointestinal: Denies nausea, vomiting, dysphagia, odynophagia, heartburn, abdominal pain, flatulence, bloating, diarrhea, constipation, change in stool, or blood in stool. Genitourinary: No dysuria, hematuria, discharge, frequency, urgency, nocturia, incontinence, and urinary retention. Endocrine: No heat or cold intolerance, polydipsia, polyuria, and polyphagia. Neurological: No dizziness, extremity weakness and numbness, tremors, gait disturbance, seizures, and memory impairment. Psychiatric: Denies depression, anxiety,or insomnia. Musculoskeletal: Denies neck pain, stiffness and swelling, back pain, muscle weakness, joint pain, stiffness, swelling, or limited range of motion. Skin: No rashes, itching, skin lesion, changes in hair, nail, skin texture and breast. Hematologic/Lymphatic: Denies easy bruising, bleeding tendencies, or lymph node enlargement. Objective vital signs Vital Sign Date Time Temp Pulse Resp B/P (MAP) Pulse Ox O2 Delivery O2 Flow Rate FiO2 03/03/25 12:41 99.0 82 18 116/76 (89) 97 99.0 03/03/25 08:00 Room Air* 0 21 Total Intake and Output 03/02/25 03/02/25 03/03/25 15:00 23:00 07:00 Intake Total 50 ml 580 ml 800 ml Balance 50 ml 580 ml 800 ml medications Current Medications Medications Dose Ordered Sig/Con Route Start Time Stop Time Status Last Admin Dose Admin Albuterol 2.5 mg Q2HPRN PRN NEB 03/01/25 16:00 Enoxaparin Sodium 40 mg DAILY SC 03/02/25 10:00 03/03/25 10:41 40 MG Acetaminophen 650 mg Q6HP PRN PO 03/01/25 16:00 03/02/25 17:41 650 MG Dextrose 50 ml UD PRN IV 03/01/25 16:00 Cancel Azithromycin 250 ml @ 125 mls/hr DAILY IV 03/02/25 10:00 03/03/25 10:00 125 MLS/HR Zinc Sulfate 220 mg DAILY PO 03/02/25 10:00 03/03/25 10:41 220 MG Insulin Glargine 10 units BID SC 03/03/25 11:45 03/03/25 12:10 10 UNITS Diagnostic Test (Pha) 1 strip IQ4HR 03/03/25 12:00 03/03/25 12:11 1 STRIP Insulin Human Regular IQ4HR SC 03/03/25 12:00 03/03/25 12:11 6 UNITS Dextrose 50 ml UD PRN IV 03/03/25 11:45 Examination General Appearance: Alert, Oriented X3, Cooperative, No acute distress HEENT: Atraumatic, PERRLA, EOMI, Mucous membrane moist/pink Respiratory: Clear to auscultation, Normal air movement Cardiovascular: Regular rate, Normal S1, Normal S2, No murmurs, no chest wall tenderness Abdominal: Normal bowel sounds, Soft, No tenderness, No hepatospenomegaly, No masses Extremities: No clubbing, No cyanosis, No edema, Normal pulses, No tenderness/swelling Skin: No rashes, No breakdown, No significant lesion Neuro: Normal gait, Normal speech, Strength at 5/5 X4 ext, Normal tone, Sensation intact, Cranial nerves 3-12 NL, Reflexes 2+ Psych/Mental Status: Mental status NL, Mood NL laboratory and microbiology Laboratory Tests 03/03/25 04:48 Test 03/03/25 04:48 Range/Units Serum Glucose 238 H 74-106 mg/dL Microbiology Date/Time Source Procedure Growth Status 03/01/25 13:30 Blood Blood Culture - Preliminary NO GROWTH AFTER 48 HOURS OF INCUBATION. Resulted Problem List/Assessment/Plan Problem List/Assessment/Plan Assessment/Plan Severe sepsis due to COVID Acute respiratory failure due to COVID Ruled out influenza A and B Azithromycin Lactic acid elevated 2.1 Albuterol q.2h p.r.n. shortness of breath IV hydration Hyponatremia IV fluids Follow sodium levels Type 2 DM uncontrolled Insulin Lantus Regular insulin mild SS a.c. and HS Accu-Cheks per protocol Diabetic diet Dyslipidemia Follow lipid profile Not on home medication Outpatient follow-up with PCP on discharge DIET: Diabetic diet GI PROPHYLAXIS:: Protonix CODE STATUS: Goal of care discussed for more than 13 minutes, full code DISPOSITION: Med/surge RECONCILED HOME MEDS: Metformin held. Started on Lantus and sliding scale insulin PCP: [facility] Patient's status and plan discussed with the patient. Case discussed with Dr. Yoon Plan discussed with: Patient Date of Service: Mar 03, 2025 Billing Provider: CALEB YOON MD Common Visit Codes: [id number] INP/OBS CARE(HIGH) GINA SPAIN RESIDENT Mar 03, 2025 14:16 CALEB YOON MD Mar 05, 2025 14:58
[2025-03-04] VITALS (7 sets, daily range): BP systolic 101–113; BP diastolic 58–75; PULSE 74–82; RESP 16–18; TEMP 98.4–99.3; O2SAT 96–99
[2025-03-04 05:26] LABS: Hematocrit 35.1 % (36.0-46.0); Hemoglobin 11.4 g/dL (12.2-16.2); Mean Corpuscular Hemoglobin 23.5 pg (28.0-32.0); Mean Corpuscular Volume 72.6 fL (80.0-100.0); Nucleated Red Blood Cells % 0.2 %
[2025-03-04 05:31] LABS: Alanine Aminotransferase 105 U/L (7-40); Albumin 3.7 g/dL (3.2-4.8); Alkaline Phosphatase 108 U/L (46-116); Anion Gap 8 (5-15); BUN/Creatinine Ratio 19.7 (10.0-20.0); Bilirubin, Total 0.4 mg/dL (0.2-1.0); Blood Urea Nitrogen 12 mg/dL (9-23); Calcium 8.9 mg/dL (8.7-10.4); Carbon Dioxide 24 mmol/L (20-31); Chloride 104 mmol/L (98-107); Glucose 212 mg/dL (74-106); Potassium 4.6 mmol/L (3.5-5.1); Sodium 136 mmol/L (136-145); Total Protein 7.0 g/dL (5.7-8.2)
[2025-03-04] MEDS ORDERED: DEXTROSE (50%) 50ML SYRG IV PRN (08:30)
[2025-03-04] MEDS: ACCU-CHEK COMFORT CURVE STRIP VI ONE (09:08)
[2025-03-04] MEDS: InsuLIN REG 1unit/0.01ml Soln (100units/ml) IV ONE (09:41)
[2025-03-04] MEDS: INSULIN LANTUS (GLARGINE) 1 /0.01ml (100units/ml) SC ONE (09:45)
[2025-03-04 10:43] LABS: Total Iron Binding Capacity 353.0 ug/dL (250-425)
[2025-03-04 10:48] LABS: Iron 47.0 ug/dL (50-170)
[2025-03-04] MEDS: ACCU-CHEK COMFORT CURVE STRIP VI SCH (11:59)
[2025-03-04] MEDS: InsuLIN REG 1unit/0.01ml Soln (100units/ml) SC SCH (12:25)
[2025-03-04] MEDS ORDERED: FER325T PO (14:28)
[2025-03-04] MEDS ORDERED: GLUC1TES63 VI (14:58)
[2025-03-04] MEDS ORDERED: INSU100I70 SC (14:58)
[2025-03-04] MEDS ORDERED: INSU100I21 SC (14:58)
[2025-03-04] MEDS ORDERED: LANC-347 XX (14:58)
[2025-03-04] MEDS ORDERED: ALCOPAD58 XX (14:58)
[2025-03-04] MEDS ORDERED: BLOO1KIT60 XX (14:58)
--- NOTE | 2025-03-04 15:11 | DVHDSRES ---
Discharge Summary Date of Admission Resident Creating Document: GINA SPAIN RESIDENT Mar 01, 2025 at 15:56 Date of Discharge: Mar 04, 2025 Labs/Diagnostic Data: Laboratory Results Test 03/04/25 12:02 03/04/25 04:30 03/02/25 04:58 03/01/25 15:30 POC Glucose 274 mg/dl (70-106) White Blood Count 6.5 10^3/uL (4.4-10.8) Red Blood Count 4.83 10^6/uL (4.0-5.20) Hemoglobin 11.4 g/dL (12.2-16.2) Hematocrit 35.1 % (36.0-46.0) Mean Corpuscular Volume 72.6 fL (80.0-100.0) Mean Corpuscular Hemoglobin 23.5 pg (28.0-32.0) Mean Corpuscular Hemoglobin Concent 32.4 g/dL (32.0-36.0) Red Cell Distribution Width 17.2 % (11.8-14.3) Platelet Count 138 10^3/uL (140-450) Mean Platelet Volume 11.0 fL (6.9-10.8) Neutrophils (%) (Auto) 40.0 % (37.0-80.0) Lymphocytes (%) (Auto) 44.3 % (10.0-50.0) Monocytes (%) (Auto) 11.3 % (0.0-12.0) Eosinophils (%) (Auto) 3.9 % (0.0-7.0) Basophils (%) (Auto) 0.5 % (0.0-2.0) Neutrophils # (Auto) 2.6 10 ^3/uL (1.6-8.6) Lymphocytes # (Auto) 2.9 10 ^3/uL (0.4-5.4) Monocytes # (Auto) 0.7 10 ^3/uL (0-1.3) Eosinophils # (Auto) 0.3 10 ^3/uL (0-0.8) Basophils # (Auto) 0 10 ^3/uL (0-0.2) Nucleated Red Blood Cells 0.2 % Sodium Level 136 mmol/L (136-145) Potassium Level 4.6 mmol/L (3.5-5.1) Chloride Level 104 mmol/L (98-107) Carbon Dioxide Level 24 mmol/L (20-31) Anion Gap 8 (5-15) Blood Urea Nitrogen 12 mg/dL (9-23) Creatinine 0.61 mg/dL (0.550-1.02) Glomerular Filtration Rate Calc 119 mL/min (>90) BUN/Creatinine Ratio 19.7 (10.0-20.0) Serum Glucose 212 mg/dL (74-106) Calcium Level 8.9 mg/dL (8.7-10.4) Iron Level 47 ug/dL (50-170) Total Iron Binding Capacity 353 ug/dL (250-425) Percent Iron Saturation 13.3 % (15-50) Ferritin 15.1 ng/mL (10-291) Total Bilirubin 0.4 mg/dL (0.2-1.0) Aspartate Amino Transferase (AST) 76 U/L (13-40) Alanine Aminotransferase (ALT) 105 U/L (7-40) Alkaline Phosphatase 108 U/L (46-116) Total Protein 7.0 g/dL (5.7-8.2) Albumin 3.7 g/dL (3.2-4.8) Hemoglobin A1c 11.7 % A1C (<5.7) Magnesium Level 1.8 mg/dL (1.6-2.6) Vitamin D 25-Hydroxy 23.4 ng/mL (30.0-100) Thyroid Stimulating Hormone (TSH) 1.32 uIU/mL (0.55-4.78) Lactic Acid Level 1.4 mmol/L (0.4-2.0) Troponin I High Sensitivity < 3 ng/L (</=34) Test 03/01/25 12:49 03/01/25 12:47 03/01/25 12:43 Influenza Type A Antigen Negative (Negative) Influenza Type B Antigen Negative (Negative) SARS-CoV-2 Antigen (Rapid) Positive (NEGATIVE) Urine Color Light-yellow (Yellow) Urine Clarity Clear (Clear) Urine pH 5.5 (5.0-9.0) Urine Specific [place] 1.015 (1.001-1.035) Urine Protein Negative (Negative) Urine Ketones Trace (Negative) Urine Blood Negative /uL (Negative) Urine Nitrite Negative (Negative) Urine Bilirubin Negative (Negative) Urine Urobilinogen Normal mg/dL (Negative) Urine Leukocyte Esterase Negative /uL (Negative) Urine RBC 1 /hpf (0 - 4) Urine Microscopic WBC 1 /HPF (0-5) Urine Squamous Epithelial Cells Few /hpf (<5) Urine Bacteria None seen /hpf (None Seen) Urine Glucose 4+ mg/dL (Normal) Urine Test Negative (Negative) D-Dimer, Quantitative 0.22 mg/L FEU (0.0-0.49) B-Type Natriuretic Peptide 11.52 pg/mL (0-100) Other Laboratory Tests 03/04/25 04:30 Brief Hx & Hospital Course: This is a 37-year-old female, Upper Sorbian-speaking with past medical history of type 2 diabetes mellitus, dyslipidemia came in with complaints of shortness of breath, cough and chest pain since 2 days. She rated the chest pain 7 on 10 in intensity, dull, radiating to left neck with no aggravating or alleviating factors. She stated that the cough is dry and shortness of breadth increased when she walked. The patient denied fever, chills, headache, dizziness, abdominal pain, nausea, vomiting, diarrhea, constipation and other associated symptoms. Upon evaluation, patient is positive for COVID-19 and negative for influenza A and B. chest x-ray was normal. Labs revealed microcytic anemia and mild thrombocytopenia. COVID antigen test was positive. During the course of the hospitalization, patient improved clinically and hence being discharged. Condition at Discharge: Fair Final Diagnosis/Problems List Severe Sepsis secondary due to COVID pneumonia Ruled out Acute respiratory failure Thrombocytopenia due to likely viral illness Uncontrolled Diabetes Mellitus type 2 Dyslipidemia Ruled out influenza A and B Hyponatremia Discharge Disposition: Home Discharge Instruct/Medications Diet: Consistent carbohydrate Activity: No Restrictions, As Tolerated Follow Up/Referral: F/u with PCP in 7 days F/u with DC clinic in 7 days Kindly recheck CBC and review with PCP Medications: As per EHR Scheduled Cephalexin (Keflex Capsule), 250 MG PO TID Ferrous Sulfate (Ferrous Sulfate), 325 MG PO DAILY Glucose Blood (Glucose Meter Test Strips), 1 FABRICE ACHS Insulin Glargine-Yfgn (Insulin Glargine), 100 UNIT SC BID Insulin Lispro (Humalog Mario Alberto Kwikpen), 100 UNIT SC TIDBM Durable Medical Equipment Blood Glucose Monitoring Suppl (D-Care Glucometer Kit/Glu W/Device), KIT XX, (DME) Isopropyl Alcohol (Easy Touch Alcohol Prep P), % XX ACHS, (DME) Lancets (Freestyle Lancets), EA XX ACHS, (DME) Discharge Statement: "Patient was advised to return to the ER or call 911 if any headaches, dizziness, shortness of breath, chest pain, abdominal pain, bleeding, fevers, or worsening of medical condition. Patient was counseled about treatment plan, medications, possible side effects, patientverbalized understanding. All questions were answered to the best of my ability. This discharge took greater then 30 minutes in planning, reviewing documentation, counseling the patient, and discussing with other team members." ASSESSMENT ASSESSMENT Assessment Severe Sepsis secondary due to COVID pneumonia Thrombocytopenia due to likely ciral illness Uncontrolled Diabetes Mellitus Date of Service: Mar 04, 2025 Billing Provider: CALEB ARAIZA MD Common Visit Codes: [id number] DISCH DAY >30min GINA SPAIN RESIDENT Mar 04, 2025 15:11 CALEB ARAIZA MD Mar 05, 2025 14:58
[2025-03-04] MEDS ORDERED: INSULIN LANTUS (GLARGINE) 1 /0.01ml (100units/ml) SC SCH (18:00)
== END 2025-03-04 16:46 | disposition home or self-care (01) | DRG 720 ==
LOC: ER 11:58 → OVERFLOW 15:56 → EAST 15:58
PROVIDERS: ADMIT Internal Medicine Geriatric Medicine; ATTEND Internal Medicine Geriatric Medicine
DX: A41.89 Other specified sepsis (principal); J12.82 Pneumonia due to coronavirus disease 2019; E87.20 Acidosis, unspecified; D69.6 Thrombocytopenia, unspecified; U07.1 COVID-19; R65.20 Severe sepsis without septic shock; E11.65 Type 2 diabetes mellitus with hyperglycemia; E87.1 Hypo-osmolality and hyponatremia; E78.5 Hyperlipidemia, unspecified; Z82.49 Family history of ischemic heart disease and other diseases of the circulatory system; Z83.3 Family history of diabetes mellitus; Z79.899 Other long term (current) drug therapy
CPT/HCPCS: 36415; 71046; 80048; 80053; 81001; 81025; 82306; 82728; 82962; 83036; 83540; 83550; 83605; 83735; 83880; 84443; 84484; 85025; 85379; 87040; 87070; 87205; 87426; 87804; 93005; 99291; G0378; J1815